=== PATIENT | female | born 1965 | race Caucasian/White ===

== ENCOUNTER 2017-02-06 12:21 | Emergency (ER) | payer SELFPAY ==
[~2017-02-06] VITALS: Ht 160 cm; Wt 68.0 kg
[~2017-02-06 12:21] MED LIST: 1-ME1LIQ PO; ASPI325T PO; GABA100C4 PO; PENI500T PO
[2017-02-06 12:30] VITALS: BP 167/100; PULSE 120; RESP 15; TEMP 98.9; O2SAT 95
--- NOTE | 2017-02-06 12:53 | PD ---
HPI Chief Complaint: Injury Time Seen by Provider: 12:47 Travel History International Travel<30 days: No Contact w/Intl Traveler<30days: No Traveled to known affect area: No History of Present Illness HPI 51-year-old female presents to Department with worsening right-sided elbow pain over the past several months. Patient states is gotten much worse over the past several days with pain radiating down into the forearm and up to the shoulder. She denies numbness or weakness. She denies any specific injury. Patient is also noted to have hypertension lisinopril for the past but she has no insurance and has no primary care physician. Patient has not tried taking anything for her elbow pain. She denies any other significant problems. No known drug allergies. PFSH Past Medical History Diminished Hearing: No Hypertension: Yes Tetanus Vaccination: Unknown Influenza Vaccination: No ?: Not LMP: [employer] Tubal Ligation: Yes Past Surgical History Other Surgery: Yes (mass removal left breast) Social History Alcohol Use: Yes (4 beers per day) Tobacco Use: Yes (1 pack per day) Substance Use: No Allergies-Medications (Allergen,Severity, Reaction): Coded Allergies: No Known Allergies (Unverified , 02/06/17) Reported Meds & Prescriptions Reported Meds & Active Scripts Active Gabapentin 100 Mg Cap 100 Mg PO TID Pen Vk (Penicillin V Potassium) 500 Mg Tab 500 Mg PO QID Amlodipine Besylate 10 Mg Tab 10 Mg PO DAILY Reported Aspirin 325 Mg Tab (Aspirin) 325 Mg Tab 325 Mg PO BID PRN takes bid as needed Review of Systems General / Constitutional: No: Fever Eyes: No: Visual changes HENT: No: Headaches Cardiovascular: No: Chest Pain or Discomfort Respiratory: No: Shortness of Breath Gastrointestinal: No: Abdominal Pain Genitourinary: No: Dysuria Musculoskeletal: Positive: Arthralgias, Pain Skin: No Rash Neurologic: No: Weakness Psychiatric: No: Depression Endocrine: No: Polydipsia Hematologic/Lymphatic: No: Easy Bruising Physical Exam Narrative GENERAL: Patient appears in no acute distress. SKIN: Warm and dry. Normal color. Normal turgor. No rash. No signs of cellulitis. HEAD: Atraumatic. Normocephalic. EYES: Pupils equal and round. No scleral icterus. No injection or drainage. ENT: No nasal bleeding or discharge. Mucous membranes pink and moist. Pharynx is normal. NECK: Trachea midline. Supple and nontender. CARDIOVASCULAR: Regular rate and rhythm. RESPIRATORY: No accessory muscle use. Clear to auscultation. Breath sounds equal bilaterally. MUSCULOSKELETAL: Extremities without clubbing, cyanosis, or edema. No obvious deformities. Patient has point tenderness over the right lateral epicondyle of the elbow without significant swelling or crepitus. Pain is worse with supination and pronation of the forearm consistent with lateral epicondylitis. NEUROLOGICAL: Awake and alert. No obvious cranial nerve deficits. Motor grossly within normal limits. Five out of 5 muscle strength in the arms and legs. Normal speech. PSYCHIATRIC: Appropriate mood and affect; insight and judgment normal. Data Data Last Documented VS Vital Signs Date Time Temp Pulse Resp B/P Pulse Ox O2 Delivery O2 Flow Rate FiO2 02/06/17 12:30 98.9 120 15 167/100 95 MDM Medical Decision Making Medical Screen Exam Complete: Yes Emergency Medical Condition: Yes Differential Diagnosis Right elbow pain. Right lateral epicondylitis. Tendinitis. Hypertension. Narrative Course Patient is medically stable at time of exam. Patient is to use prednisone 20 mg twice a day 7 days. Patient can take Tylenol as well as needed. Patient is to ice the area after work. Patient is to use a tennis elbow splint as discussed. Patient given a refill of lisinopril 10 mg daily #30 with 2 refills. Patient should follow-up with local primary care physician as discussed. Patient can return to emergency department with worsening symptoms as needed. Diagnosis Primary Impression: Epicondylitis, lateral, right Additional Impression: Hypertension Qualified Code: I10 - Essential hypertension Referrals: [facility] Primary Care OB [facility] Patient Instructions: General Instructions, Tennis Elbow (ED), Tennis Elbow Exercises (GEN) Additional Instructions: Patient is to use prednisone 20 mg twice a day 7 days. Patient can take Tylenol as well as needed. Patient is to ice the area after work. Patient is to use a tennis elbow splint as discussed. Patient given a refill of lisinopril 10 mg daily #30 with 2 refills. Patient should follow-up with local primary care physician as discussed. Patient can return to emergency department with worsening symptoms as needed. Med/Other Pt SpecificInfo: Prescription(s) given Disposition: 01 DISCHARGE HOME Condition: Stable Kun Medina. PA Feb 06, 2017 12:53
[2017-02-06] MEDS ORDERED: LISI10TA3 PO (12:54)
[2017-02-06] MEDS ORDERED: PRED20 PO (12:54)
== END 2017-02-06 13:03 | disposition home or self-care (01) ==
LOC: PHEFT 12:21
DX: M77.11 Lateral epicondylitis, right elbow (principal); I10 Essential (primary) hypertension; F17.200 Nicotine dependence, unspecified, uncomplicated
CPT/HCPCS: 99283

== ENCOUNTER 2017-03-06 12:11 | Emergency (ER) | payer OTHER ==
[~2017-03-06] VITALS: Ht 160 cm; Wt 68.0 kg
[~2017-03-06 12:11] MED LIST changes: +LISI10TA3 PO; +PRED20 PO
[2017-03-06 12:15] VITALS: BP 151/106; PULSE 100; RESP 17; TEMP 98.1; O2SAT 97
[2017-03-06] MEDS ORDERED: LISI10TA3 PO (12:23)
--- NOTE | 2017-03-06 12:32 | PD ---
HPI Chief Complaint: Injury Time Seen by Provider: 12:28 Travel History International Travel<30 days: No Contact w/Intl Traveler<30days: No Traveled to known affect area: No History of Present Illness HPI Patient comes back to the emergency department complaining of continued right elbow pain. Patient has been ongoing for several months was seen here approximately 3 weeks ago for the same. Patient states the pain got better until she had started using it again at work. Pain is burning like sensation primarily lateral aspect of her right elbow is worse with certain movement. Resting makes it better. Denies any trauma or numbness or tingling. Denies any radiation of the pain. PFSH Past Medical History Diminished Hearing: No Hypertension: Yes Influenza Vaccination: No ?: Not Tubal Ligation: Yes Past Surgical History Other Surgery: Yes (mass removal left breast) Social History Alcohol Use: Yes (4 beers per day) Tobacco Use: Yes (1 pack per day) Substance Use: No Allergies-Medications (Allergen,Severity, Reaction): Coded Allergies: No Known Allergies (Unverified , 03/06/17) Reported Meds & Prescriptions Reported Meds & Active Scripts Active Naprosyn (Naproxen) 500 Mg Tab 500 Mg PO Q12HR PRN Reported Lisinopril 10 Mg Tab 10 Mg PO DAILY Review of Systems Except as stated in HPI: all other systems reviewed are Neg Physical Exam Narrative GENERAL: Well-developed, overly nourished, in no acute distress, and non-ill appearing. SKIN: Focused skin assessment warm and dry. HEAD: Atraumatic. Normocephalic. EYES: Pupils equal and round. EOMI. No scleral icterus. No injection or drainage. ENT: No nasal bleeding or discharge. Mucous membranes pink and moist. NECK: Trachea midline. Supple. No nuclear rigidity. CARDIOVASCULAR: Radial pulses 2+, intact, and equal bilaterally. Capillary refill less than 2 seconds. RESPIRATORY: No accessory muscle use. No respiratory distress. MUSCULOSKELETAL: No obvious deformities. No clubbing. No cyanosis. No edema. Full range of motion. Elbow : FROM and strength equal BL with passive flexion, extension, and pronation/supination. No laxity noted with varus and valgus maneuvers. Pulses equal BL distal to injury. Capillary refill less than 2 seconds distal to injury and equal BL. FROM distal to injury and equal BL. Strength distal to injury equal BL. NV intact distal to injury and equal BL. Flexion and extension of thumb equal BL. Equal strength and movement with abduction/adductions of BL fingers. Calender Operator strength equal BL. Patient reports tenderness to palpation over right lateral epicondyle of the right elbow. NEUROLOGICAL: Awake and alert. No obvious cranial nerve deficits. Motor grossly within normal limits. Normal speech. PSYCHIATRIC: Appropriate mood and affect; insight and judgment normal. Data Data Last Documented VS Vital Signs Date Time Temp Pulse Resp B/P Pulse Ox O2 Delivery O2 Flow Rate FiO2 03/06/17 12:15 98.1 100 17 151/106 97 MDM Medical Decision Making Medical Screen Exam Complete: Yes Emergency Medical Condition: No Differential Diagnosis Fracture, strain, contusion, other Narrative Course There is no clinical evidence for fracture. There is no clinical evidence to suspect bony injury by exam. No obvious ligamental injury or internal derangement is noted at this time. The distal extremity appears neurovascularly intact, without evidence of neurovascular injury nor compartment syndrome. Tendon exam also was intact. The patient was discharged on pain medication and given warnings for vascular compromise. The patient is to follow up with primary care provider or Orthopedics. The patient agrees with plan. Patient in no obvious distress upon re-evaluation. Patient was asked if they wanted to speak to my attending, which the patient did not wish to do at this time. Any questions/concerns in reference to patient diagnosis/condition discussed and clarified prior to patient's discharge. Reinforced sheer importance of close follow up with patient's primary physician or primary care clinic. Instructed patient to return to ED immediately, if symptoms return/ worsen. Pt showed understanding of above instructions. Further instructions and recommendations were detailed in discharge paperwork. Pt ambulated without difficulty out of ED at discharge. Diagnosis Primary Impression: Epicondylitis, lateral, right Referrals: Mike Ni MD [facility] Orthopedist Primary Care Physician Patient Instructions: General Instructions Additional Instructions: Follow-up with your primary care physician and/or orthopedics in 3-5 days for reevaluation. Take all medication as prescribed. Apply ice affected area 20 minutes per hour as needed for pain. Return to the emergency department if symptoms get worse. Med/Other Pt SpecificInfo: Prescription(s) given Scripts Naproxen (Naprosyn)500 Mg Nxl750 Mg PO Q12HR PRN (PAIN SCALE 1 TO 10) #14 TAB Ref 0 Prov:Kelly Hawkins MD 03/06/17 Disposition: 01 DISCHARGE HOME Condition: Stable lForencio Sharma Mar 06, 2017 12:31
[2017-03-06] MEDS ORDERED: NAPR500 PO (12:33)
== END 2017-03-06 12:45 | disposition home or self-care (01) ==
LOC: PHEFT 12:11
DX: M77.11 Lateral epicondylitis, right elbow (principal); I10 Essential (primary) hypertension; F10.10 Alcohol abuse, uncomplicated; F17.210 Nicotine dependence, cigarettes, uncomplicated
CPT/HCPCS: 99283

== ENCOUNTER 2017-10-11 12:15 | Emergency (ER) | payer OTHER ==
[~2017-10-11] VITALS: Ht 162.6 cm; Wt 69.3 kg
[~2017-10-11 12:15] MED LIST changes: -1-ME1LIQ PO; -ASPI325T PO; -GABA100C4 PO; +NAPR500 PO; -PENI500T PO; -PRED20 PO
[2017-10-11 12:35] VITALS: BP 150/82; PULSE 106; RESP 16; TEMP 98.3; O2SAT 98
--- NOTE | 2017-10-11 14:12 | PD ---
HPI Chief Complaint: Cold / Flu Symptoms Time Seen by Provider: 13:55 Travel History International Travel<30 days: No Contact w/Intl Traveler<30days: No Traveled to known affect area: No History of Present Illness HPI 52-year-old female presents to the emergency department for evaluation of cold symptoms that started on , 4 days ago. Patient reports cough, congestion, runny nose. Patient states she was seen at [facility] on Wednesday and was told she had a viral syndrome. She was not sent home with any prescriptions. She states that her symptoms have worsened despite taking [id number] medications. She states she vomited on , has not vomited since. She denies any abdominal pain. Patient states she's had 5 episodes of diarrhea in the past 24 hours. No blood in her stool. She states she's had chills at night, but no documented fever. She does report history of hypertension and takes lisinopril. She is a current tobacco smoker. Severity is moderate. No exacerbating or alleviating factors. PFSH Past Medical History Diminished Hearing: No Hypertension: Yes Influenza Vaccination: No ?: Not Tubal Ligation: Yes Past Surgical History Other Surgery: Yes (mass removal left breast) Social History Alcohol Use: Yes (4 beers per day) Tobacco Use: Yes (1PPD) Substance Use: No Allergies-Medications (Allergen,Severity, Reaction): Coded Allergies: No Known Allergies (Unverified Adverse Reaction, Unknown, 10/11/17) Reported Meds & Prescriptions Reported Meds & Active Scripts Active Reported Lisinopril 10 Mg Tab 10 Mg PO DAILY Review of Systems Except as stated in HPI: all other systems reviewed are Neg Physical Exam Narrative GENERAL: Well-nourished, well-developed female patient, ambulatory. Afebrile. SKIN: Focused skin assessment warm/dry. HEAD: Normocephalic. Atraumatic. ENT: Mucosa pink and moist. No erythema or exudates. No uvular edema. No uvular , palatal, or tonsillar deviation. Airway patent. Nasal turbinates appear normal without nasal blood, purulent drainage or septal hematoma. Bilateral tympanic membranes are clear without erythema or perforation. EYES: No scleral icterus. No injection or drainage. NECK: Supple, trachea midline. No JVD or lymphadenopathy. CARDIOVASCULAR: Regular rate and rhythm without murmurs, gallops, or rubs. RESPIRATORY: Breath sounds equal bilaterally. No accessory muscle use. Lungs sounds with slight expiratory wheezes noted. GASTROINTESTINAL: Abdomen soft, non-tender, nondistended. MUSCULOSKELETAL: No cyanosis, or edema. BACK: Nontender without obvious deformity. No CVA tenderness. Data Data Last Documented VS Vital Signs Date Time Temp Pulse Resp B/P (MAP) Pulse Ox O2 Delivery O2 Flow Rate FiO2 10/11/17 12:35 98.3 106 16 150/82 (104) 98 Orders Orders Chest, Single Ap (10/11/17 14:09) Prednisone (Deltasone) (10/11/17 14:15) Albuterol-Ipratropium Neb (Duoneb Neb) (10/11/17 14:15) [facility] Medical Decision Making Medical Screen Exam Complete: Yes Emergency Medical Condition: Yes Medical Record Reviewed: Yes Interpretation(s) chest x-ray - CONCLUSION: Interstitial infiltrates with peribronchial thickening suggesting viral pneumonitis with bronchitis/bronchiolitis. Differential Diagnosis Pneumonia versus bronchitis versus URI Narrative Course 52-year-old female presents to the emergency department for evaluation of cold symptoms that started 4 days ago. Patient is given DuoNeb 2, prednisone 60 mg by mouth. Chest x-ray is ordered and pending. Chest x-ray shows Interstitial infiltrates with peribronchial thickening suggesting viral pneumonitis with bronchitis/bronchiolitis. Patient appears well on exam. Patient will be discharged with a prescription for albuterol inhaler, prednisone, azithromycin. She is encouraged to follow with her primary care physician. She is return here for any acute worsening of symptoms. The patient was discharged in stable condition with instructions, including return instructions and follow up instructions. Diagnosis Primary Impression: Pneumonia Qualified Codes: J18.9 - Pneumonia, unspecified organism Referrals: Primary Care Physician call for appointment Patient Instructions: Community Acquired Pneumonia (ED), General Instructions Departure Forms: Tests/Procedures, Work Release Enter return to work date: Oct 14, 2017 Additional Instructions: Take antibiotic as directed until gone. Take prednisone as directed. Start this tomorrow. Use albuterol inhaler as directed as needed for shortness of breath/wheezing. Follow-up with your primary care physician. Return to the emergency department for any acute worsening of symptoms. Med/Other Pt SpecificInfo: Prescription(s) given Scripts Azithromycin (Zithromax Z-Tan) 250 Mg Dspk 250 MG PO DIRECTED for Infection, #1 DSPK 0 Refills 500 MG (2 tabs) day 1, then 1 tab days 2-5. Prov: Chaya Amanda 10/11/17 Prednisone (Prednisone) 20 Mg Tab 40 MG PO DAILY, #10 TAB 0 Refills Take 40 mg (2 tablets) daily for 5 days Prov: Chaya Amanda 10/11/17 Albuterol 8.5 GM Inh (Proair Hfa 8.5 GM Inh) 90 Mcg/Act Aer 1 PUFF INH Q4H Y for SHORTNESS OF BREATH, #1 INHALER 0 Refills 108 mcg/actuation Prov: Chaya Amanda 10/11/17 Disposition: 01 DISCHARGE HOME Condition: Stable Chaya Amanda Oct 11, 2017 14:12
[2017-10-11] MEDS ORDERED: predniSONE 20 MG TAB PO ONE (14:15)
[2017-10-11] MEDS: RESP: ALBUTEROL 2.5 MG/IPRATROPIUM 0.5 MG NEB (SCH) INH (14:36)
--- NOTE | 2017-10-11 14:54 | RADRPT ---
EXAM DATE/TIME: 10/11/2017 14:26 [place] COMPARISON: No previous studies available for comparison. INDICATIONS : Wheezing and cough for 3 days. MEDICAL HISTORY : Hypertension. SURGICAL HISTORY : Left breast mass removed. ENCOUNTER: Initial ACUITY: 3 days PAIN SCORE: 6/10 LOCATION: Bilateral chest FINDINGS: A single portable frontal view the chest shows an interstitial prominence to the lungs bilaterally. P eribronchial thickening also noted best appreciated within the left upper lobe. No intraorbital infil trates. No effusions. Heart is normal in size. Bony structures are unremarkable. CONCLUSION: Interstitial infiltrates with peribronchial thickening suggesting viral pneumonitis with bronchitis/b ronchiolitis. Kamlesh Blount Jr., MD on October 11, 2017 at 14:52 Board Certified Radiologist. This report was verified electronically.
[2017-10-11] MEDS ORDERED: ZITHTAB PO (15:02)
[2017-10-11] MEDS ORDERED: ALBUAER3 INH (15:02)
[2017-10-11] MEDS ORDERED: PRED20 PO (15:02)
== END 2017-10-11 15:27 | disposition home or self-care (01) ==
LOC: PHED 12:15 → PHEFT 15:27
DX: J18.9 Pneumonia, unspecified organism (principal); R19.7 Diarrhea, unspecified; I10 Essential (primary) hypertension; F17.200 Nicotine dependence, unspecified, uncomplicated
CPT/HCPCS: 71010; 94640; 94664; 99284; J7512